=== PATIENT | female | born 1960 | race Hispanic/Latino ===

== ENCOUNTER 2025-05-29 19:51 | Emergency (ER) | payer SELFPAY ==
[~2025-05-29] VITALS: Ht 157.5 cm; Wt 127.0 kg
[~2025-05-29 19:51] MED LIST: PREDNISONE20 MG PO
[2025-05-29 19:55] VITALS: TEMP 98.4
[2025-05-29 20:38] VITALS: PULSE 53; RESP 17
[2025-05-29] MEDS: TETANUS/DIPHTHERIA TOX ADULT 0.5 ML SYR IM ONE (21:30)
[2025-05-29] MEDS: LIDOCAINE 1% W/EPINEPHRINE 20 ML VIAL INJ ONE (22:58)
[2025-05-29] MEDS ORDERED: LISINOPRIL10 MG PO (23:01)
[2025-05-29 23:19] VITALS: BP 189/75; PULSE 55; RESP 17; O2SAT 100
== END 2025-05-29 23:17 | disposition home or self-care (01) ==
LOC: ER 20:12
DX: S01.01XA Laceration without foreign body of scalp, initial encounter (principal); W20.8XXA Other cause of strike by thrown, projected or falling object, initial encounter; Y99.0 Civilian activity done for income or pay
CPT/HCPCS: 70450; 90714; 99284